=== PATIENT | female | born 1995 | race American Indian/Alaskan Native ===

== ENCOUNTER 2017-03-15 14:02 | Emergency (ER) | payer OTHER ==
[2017-03-15] MEDS ORDERED: MOTRIN PO ONE (17:14)
[2017-03-15] MEDS ORDERED: TORADOL IM ONE (17:40)
[2017-03-15] MEDS ORDERED: FLEXERIL PO ONE (17:52)
[2017-03-15] MEDS ORDERED: FLEXERIL ONE (17:55)
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
[2017-03-15 19:01] LABS: Basophils % (Auto) 1.1 % (0.0-1.8); Eosinophils % (Auto) 0.2 % (0.0-4.3); Hematocrit 37.1 % (30.3-42.9); Hemoglobin 12.2 gm/dl (10.1-14.3); Mean Corpuscular HGB Conc 33 % (30-34); Mean Corpuscular Hemoglobin 28 pg (28-32); Mean Corpuscular Volume 85 fl (79-97); Platelet Count 271 K/mm3 (140-440); Red Blood Count 4.35 M/mm3 (3.65-5.03); Red Cell Distribution Width 12.6 % (13.2-15.2); White Blood Count 10.8 K/mm3 (4.5-11.0)
[2017-03-15 19:39] LABS: Alanine Aminotransferase 32 units/L (7-56); Albumin/Globulin Ratio 1.3 %; Alkaline Phosphatase 62 units/L (35-129); Anion Gap 18 mmol/L; BUN/Creatinine Ratio 15; Blood Urea Nitrogen 9 mg/dL (7-17); Calcium 8.9 mg/dL (8.4-10.2); Carbon Dioxide 24 mmol/L (22-30); Chloride 101.3 mmol/L (98-107); Glucose 86 mg/dL (65-100); Sodium 139 mmol/L (137-145)
[2017-03-15 21:17] LABS: Urine Drugs of Abuse Note Disclamer
[2017-03-15 21:24] LABS: Bacteria,Urine 1+ /HPF (Negative); Bilirubin,Urine NEG (Negative); Blood,Urine MOD (Negative); Ketones,Urine TR mg/dL (Negative); Leukocyte Esterase,Urine NEG (Negative); Mucus,Urine FEW /HPF; Nitrite,Urine NEG (Negative); Protein,Urine <15 mg/dL mg/dL (Negative); Urobilinogen,Urine < 2.0 mg/dL (<2.0)
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
[2017-03-16 00:08] VITALS: BP 120/67
== END 2017-03-16 00:13 | disposition home or self-care (01) ==
LOC: ED 14:02
DX: S20.219A Contusion of unspecified front wall of thorax, initial encounter (principal); R00.1 Bradycardia, unspecified; V49.9XXA Car occupant (driver) (passenger) injured in unspecified traffic accident, initial encounter; W22.10XA Striking against or struck by unspecified automobile airbag, initial encounter; Y93.89 Activity, other specified; Y99.8 Other external cause status; Y92.89 Other specified places as the place of occurrence of the external cause
CPT/HCPCS: 36415; 71020; 72072; 72100; 80053; 80307; 81001; 81025; 84484; 85025; 93005; 93010; 96372; 99284; J1885

== ENCOUNTER 2020-04-05 14:27 | Emergency (ER) | payer OTHER ==
[2020-04-05 14:41] VITALS: BP 147/76
--- NOTE | 2020-04-05 16:10 | Emergency Department Report ---
Chief Complaint: Extremity Injury, Upper Stated Complaint: BACK/THUMB/SHOULDER PAIN Time Seen by Provider: 04/05/20 16:00 - HPI History of Present Illness: Patient is a 24-year-old female presents emergency room with complaints of left thumb pain that began 2 days ago. She denies any fall or injury. 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 She denies any numbness or weakness. She denies ever injuring in the past. She states that she does do a lot of repetitive movements at work. No past medical history. No allergies to medications. Last menstrual cycle 2 days ago. VSS on exam: Non toxic appearing, no acute distress atraumatic, normocephalic normal appearance of the eyes, EOMI, no periorbital edema or ecchymosis no respiratory distress, no accessory muscle use Full range of motion of the left upper extremity without difficulty, she has some mild discomfort upon flexion of the thumb, no edema, no erythema, no skin changes, no increased warmth, no deformity, neurovascularly intact A&O x4, no focal neuro deficit skin is warm, dry, intact Patient is presenting with left thumb pain that began 2 days ago She has had no acute trauma She has full range of motion Symptoms likely related to tendinitis from overuse versus de Quervain's tenosynovitis No signs of gout, infectious tenosynovitis, septic joint Discussed supportive care and symptomatic treatment with patient Patient be referred to primary care doctor and orthopedic Discussed return precautions Medical screen examination performed there is no threat to life or limb this time - Exam Vital Signs: Vital Signs 04/05/20 14:40 Temperature 98.1 F Pulse Rate 55 L Respiratory 14 Rate Blood Pressure 147/76 O2 Sat by Pulse 99 Oximetry MSE screening note: Focused history and physical exam performed. Due to findings the following was ordered: ED Disposition for MSE Clinical Impression: Pain of left thumb Disposition: Z-07 MED SCREENING EXAM-LEFT Is pt being admited?: No Does the pt Need Aspirin: No Condition: Stable Instructions: De Quervain's Tenosynovitis, Tendinitis Additional Instructions: May alternate Tylenol and then ibuprofen as needed for discomfort. May ice for 15 minutes at a time, rest, elevate the arm, soak in Epsom salt. May use a splint [id number] for the thumb, but do not wear too tightly. Follow-up with a primary care doctor. Follow-up with orthopedic doctor. Return to emergency room for any new or worsening symptoms. Referrals: DESIREE QURESHI MD [Staff Physician] - 3-5 Days [facility] [Provider Group] - 3-[address] [facility], [LAB/CONTRACT] - 3-5 Days OVI BRISENO MD [Staff Physician] - 3-5 Days [facility]] - 3-5 Days Time of Disposition: 16:09 Print Language: CROATIAN
== END 2020-04-05 16:20 | disposition left against medical advice (07) ==
LOC: ED 14:27
DX: M54.9 Dorsalgia, unspecified (principal); Z53.21 Procedure and treatment not carried out due to patient leaving prior to being seen by health care provider

== ENCOUNTER 2020-04-26 02:31 | Emergency (ER) | payer SELFPAY ==
[2020-04-26] MEDS ORDERED: ASPIRIN 325 MG TAB PO ONE (02:42)
[2020-04-26 03:23] LABS: Basophils # (Auto) 0.1 K/mm3 (0.0-0.1); Basophils % (Auto) 0.8 % (0.0-1.8); Eosinophils # (Auto) 0.1 K/mm3 (0.0-0.4); Eosinophils % (Auto) 1.1 % (0.0-4.3); Hemoglobin 12.4 gm/dl (10.1-14.3); Lymphocytes # (Auto) 3.9 K/mm3 (1.2-5.4); Lymphocytes % (Auto) 49.1 % (13.4-35.0); Mean Corpuscular HGB Conc 34 % (30-34); Mean Corpuscular Volume 88 fl (79-97); Monocytes # (Auto) 0.6 K/mm3 (0.0-0.8); Monocytes % (Auto) 7.4 % (0.0-7.3); Platelet Count 258 K/mm3 (140-440); Red Cell Distribution Width 13.1 % (13.2-15.2)
[2020-04-26 03:41] LABS: Blood Urea Nitrogen 12 mg/dL (7-17); Calcium 9.6 mg/dL (8.4-10.2); Hemolysis Index 4
[2020-04-26 03:48] LABS: BUN/Creatinine Ratio 17
--- NOTE | 2020-04-26 04:12 | XRay Report ---
CHEST 1 VIEW INDICATION: Chest Pain. COMPARISON: 03/15/2017 FINDINGS: SUPPORT DEVICES: None. HEART: Within normal limits. LUNGS/PLEURA: No acute air space or interstitial disease. ADDITIONAL FINDINGS: None. IMPRESSION: 1. No acute findings. Signer Name: Leonardo East MD Signed: 04/26/2020 4:08 AM Workstation Name: [id number]
[2020-04-26] MEDS ORDERED: IBUPROFEN 800 MG TAB PO ONE (05:20)
--- NOTE | 2020-04-26 06:42 | Emergency Department Report ---
ED Chest Pain HPI - General Chief Complaint: Chest Pain Stated Complaint: CHEST PAINS BODYACHES Time Seen by Provider: 04/26/20 04:37 Source: patient Mode of arrival: Wheelchair Limitations: No Limitations - History of Present Illness Initial Comments: This is a 24-year-old female with no history of similar chest pain, cardiac problems or VTE. Likewise she has no family history of VTE. She does smoke. She has had no recent travel. She states that about 1:30 last night she developed substernal chest pain which caused pressure under both her breasts with some pain in her back. It is worsened by breathing but she did not feel frankly short of breath. She did not refer her cough. She is asymptomatic at this time. He said no recent travel, leg pain or swelling. Duration of the pain was several minutes. Patient is without pain now. It was not persistent at the time of my encounter. Patient is came here in October with symptoms similar to COVID-19 infection. However she states she had a test that was negative at that time. Does not repo rt any recent exposure. MD Complaint: chest pain -: Gradual, hour(s) Onset: during rest Pain Location: substernal Pain Radiation: back Severity: moderate Severity scale (0 -10): 7 Quality: heaviness Consistency: intermittent, now resolved Improves With: nothing Worsens With: exertion re: denies: nausea, vomting, diaphoresis Other Symptoms: denies: cough, fever, syncope Treatments Prior to Arrival: none Aspirin use within the Past 7 Days: (0) No - Related Data Previous Rx's Medication Instructions Recorded Last Taken Type Cyclobenzaprine HCl [Flexeril 5 MG 5 mg PO QHS PRN #10 tablet 03/15/17 Unknown Rx TAB] Ibuprofen 600 mg PO Q8HR PRN #30 tablet 03/15/17 Unknown Rx Naproxen [Naprosyn] 500 mg PO Q12H PRN #14 tablet 04/26/20 Unknown Rx Allergies Allergy/AdvReac Type Severity Reaction Status Date / Time No Known Allergies Allergy Verified 06/26/15 00:01 Heart Score - HEART Score History: Slightly suspicious EKG: Normal Age: < 45 Risk factors: 1-2 risk factors Troponin: < normal limit HEART Score: 1 - Critical Actions Critical Actions: 0-3 pts:0.9-1.7%risk of adverse cardiac event.Candidate for discharge ED Review of Systems ROS: Stated complaint: CHEST PAINS BODYACHES Other details as noted in HPI Constitutional: denies: chills, fever Eyes: denies: eye pain, eye discharge, vision change ENT: denies: ear pain, throat pain Respiratory: denies: cough, shortness of breath, wheezing Cardiovascular: chest pain. denies: palpitations Endocrine: no symptoms reported Gastrointestinal: denies: abdominal pain, nausea, diarrhea Genitourinary: denies: urgency, dysuria Musculoskeletal: denies: back pain, arthralgia Skin: denies: rash, lesions Neurological: denies: headache, weakness, paresthesias Psychiatric: denies: anxiety, depression Hematological/Lymphatic: denies: easy bleeding, easy bruising ED Past Medical Hx - Past Medical History Previous Medical History?: No - Surgical History Past Surgical History?: No - Social History Smoking Status: Never Smoker Substance Use Type: None - Medications Home Medications: Home Medications Medication Instructions Recorded Confirmed Last Taken Type Cyclobenzaprine HCl [Flexeril 5 MG 5 mg PO QHS PRN #10 tablet 03/15/17 Unknown Rx TAB] Ibuprofen 600 mg PO Q8HR PRN #30 tablet 03/15/17 Unknown Rx Naproxen [Naprosyn] 500 mg PO Q12H PRN #14 tablet 04/26/20 Unknown Rx ED Physical Exam - General Limitations: No Limitations, Physical Limitation General appearance: alert, in no apparent distress, obese - Head Head exam: Present: atraumatic, normocephalic - Eye Eye exam: Present: normal appearance - ENT ENT exam: Present: mucous membranes moist - Neck Neck exam: Present: normal inspection - Respiratory Respiratory exam: Present: normal lung sounds bilaterally. Absent: respiratory distress - Cardiovascular Cardiovascular Exam: Present: regular rate, normal rhythm. Absent: systolic murmur, diastolic murmur, rubs, gallop - GI/Abdominal GI/Abdominal exam: Present: soft, normal bowel sounds. Absent: distended, tenderness, guarding, rebound, rigid - Extremities Exam Extremities exam: Present: normal inspection. Absent: joint swelling, calf tenderness - Back Exam Back exam: Present: normal inspection - Neurological Exam Neurological exam: Present: alert, oriented X3, CN II-XII intact. Absent: motor sensory deficit - Psychiatric Psychiatric exam: Present: normal affect, normal mood - Skin Skin exam: Present: warm, dry, intact, normal color. Absent: rash ED Course Vital Signs 04/26/20 04/26/20 04/26/20 02:45 04:27 04:30 Temperature 98.1 F 98.4 F Pulse Rate 86 74 Respiratory 20 34 H 24 Rate Blood Pressure 152/88 Blood Pressure 130/83 [Left] O2 Sat by Pulse 97 100 Oximetry - Reevaluation(s) Reevaluation #1: Patient qualified for CT examination. It is pending. 04/26/20 06:50 Reevaluation #2: No further chest discomfort in the emergency department. CTA negative. EKG was normal. Negative troponin x2. Patient stratifies to outpatient follow-up considering the nonpersistent nature of her pain and work-up. 04/26/20 09:47 ED Medical Decision Making - Lab Data Result diagrams: 04/26/20 02:57 04/26/20 02:57 Laboratory Results - last 24 hr 04/26/20 04/26/20 04/26/20 02:57 02:57 02:57 WBC 7.9 RBC 4.20 Hgb 12.4 Hct 37.0 MCV 88 MCH 29 MCHC 34 RDW 13.1 L Plt Count 258 Lymph % (Auto) 49.1 H Hardin % (Auto) 7.4 H Eos % (Auto) 1.1 Baso % (Auto) 0.8 Lymph # (Auto) 3.9 Hardin # (Auto) 0.6 Eos # (Auto) 0.1 Baso # (Auto) 0.1 Seg Neutrophils % 41.6 Seg Neutrophils # 3.3 Sodium 137 Potassium 3.9 Chloride 100.9 Carbon Dioxide 25 Anion Gap 15 BUN 12 Creatinine 0.7 Estimated GFR > 60 BUN/Creatinine Ratio 17 Glucose 114 H Calcium 9.6 Troponin T < 0.010 HCG, Qual Negative 04/26/20 04:47 WBC RBC Hgb Hct MCV MCH MCHC RDW Plt Count Lymph % (Auto) Hardin % (Auto) Eos % (Auto) Baso % (Auto) Lymph # (Auto) Hardin # (Auto) Eos # (Auto) Baso # (Auto) Seg Neutrophils % Seg Neutrophils # Sodium Potassium Chloride Carbon Dioxide Anion Gap BUN Creatinine Estimated GFR BUN/Creatinine Ratio Glucose Calcium Troponin T < 0.010 HCG, Qual - EKG Data -: EKG Interpreted by De EKG shows normal: sinus rhythm, axis, intervals, QRS complexes, ST-T waves Rate: normal - EKG Data Interpretation: other (Lower voltage related to habitus, normal EKG) - Radiology Data Radiology results: report reviewed (Chest x-ray and CTA were negative), image reviewed Critical care attestation.: If time is entered above; I have spent that time in minutes in the direct care of this critically ill patient, excluding procedure time. ED Disposition Clinical Impression: Atypical chest pain Disposition: TO HOME OR SELFCARE Is pt being admited?: No Does the pt Need Aspirin: No Condition: Stable Instructions: Chest Pain (ED), Nonspecific Chest Pain, Adult Additional Instructions: Return as needed for reevaluation any significant chest pain. Otherwise further evaluation is recommended in the primary care setting. Rx if needed for pain. Prescriptions: Naproxen [Naprosyn] 500 mg PO Q12H PRN #14 tablet PRN Reason: Pain, Moderate (4-6) Referrals: PRIMARY CARE, [Primary Care Provider] - 3-5 Days Time of Disposition: 09:49
--- NOTE | 2020-04-26 07:14 | Cat Scan Report ---
CTA chest with contrast INDICATION : P.E. PROTOCOL!!! Patient complains of pleuritic chest pain. TECHNIQUE: Axial imaging performed through the chest, with contrast bolus timing set to maximize opa cification of the pulmonary arteries. 3-plane MIP reformatted images were obtained. All CT scans at this location are performed using CT dose reduction for ALARA by means of automated exposure control. 100 mL of intravenous contrast administered. COMPARISON: None FINDINGS: Bolus: Contrast bolus timing is adequate. PTE: No filling defect is present to suggest PTE. Mediastinum: Heart and great vessels appear normal. No pathologic mediastinal adenopathy. Lungs: Lungs are clear. Upper abdomen: Limited imaging of the upper abdomen shows nothing acute. Bones: Degenerative changes in the spine with nothing acute. IMPRESSION: Negative for PTE. Clear lungs. Signer Name: Leonardo East MD Signed: 04/26/2020 7:09 AM Workstation Name: [id number]
[2020-04-26 11:13] VITALS: BP 132/68
== END 2020-04-26 10:30 | disposition home or self-care (01) ==
LOC: ED 02:31
DX: R07.89 Other chest pain (principal); Z79.899 Other long term (current) drug therapy
CPT/HCPCS: 36415; 71045; 71275; 80048; 84484; 84703; 85025; 93005; 99284; Q9967